=== PATIENT | female | born 1940 | race Caucasian/White ===

== ENCOUNTER → 2016-03-17 | Outpatient (CLI) | payer MEDICARE, BC ==
[~2016-03-17] MED LIST: DOCU-144 PO; ESCI10TA PO; HYDR-905 PO; LOSA50TA6 PO; PANT40TA4 PO; PITA2TAB PO; ULT50 PO
--- NOTE | 2016-03-17 11:54 | RADRPT ---
PROCEDURE: XR pelvis/right hip. CLINICAL INDICATION: Hip pain TECHNIQUE: AP pelvis/lateral right hip view available for review. COMPARISON: 02/18/2016 FINDINGS: There is a right total hip replacement. There is no evidence of loosening of the prosthesis. There is mild to moderate left hip osteoarthrosis. This is associated with joint space narrowing, jimenez bchondral sclerosis and osteophytosis. There is normal osseous mineralization. No fractures or osseo us lesions are identified. The soft tissues are unremarkable. IMPRESSION: Right total hip replacement. Mild to moderate left hip osteoarthrosis. RPTAT: HGDB .Emmanuel Lora MD, MD Date Time Electronically viewed and signed by .Emmanuel Lora MD, on 03/17/2016 11:54 .B/
== END | disposition home or self-care (01) ==
LOC: HKI 08:49
PROVIDERS: ATTEND Orthopaedic Surgery
DX: Z47.1 Aftercare following joint replacement surgery (principal); M16.11 Unilateral primary osteoarthritis, right hip; Z96.641 Presence of right artificial hip joint
CPT/HCPCS: 73502; G0463

== ENCOUNTER → 2016-05-15 | Outpatient (CLI) | payer MEDICARE, BC ==
[~2016-05-15] MED LIST changes: +TRAM50TA2 PO; -ULT50 PO
--- NOTE | 2016-05-15 17:07 | RADRPT ---
PROCEDURE: XR Right hip and pelvis. CLINICAL INDICATION: Right hip pain. Pelvic pain. Postop. TECHNIQUE: Three views. Frontal pelvis. Frontal and lateral right hip. COMPARISON: 03/17/2016. FINDINGS: There is no fracture or dislocation. The soft tissues are normal. There is a right hip total arthroplasty which appears satisfactory. There are moderate degenerative changes of the left hip with joint space narrowing and osteophytes. There is no lytic or blastic lesion. The sacroiliac joints are grossly normal. IMPRESSION: 1. Satisfactory postoperative appearance of the right hip. 2. Moderate degenerative changes of the left hip. RPTAT: QQ .Enrique Rutherford MD, MD Date Time Electronically viewed and signed by .Enrique Rutherford MD, MD on 05/15/2016 17:07 .R/
== END | disposition home or self-care (01) ==
LOC: HKI 08:45
PROVIDERS: ATTEND Orthopaedic Surgery
DX: M17.11 Unilateral primary osteoarthritis, right knee (principal); M25.561 Pain in right knee; Z96.641 Presence of right artificial hip joint
CPT/HCPCS: 73502; G0463

== ENCOUNTER → 2016-06-23 | Outpatient (CLI) | payer MEDICARE, BC ==
--- NOTE | 2016-06-23 10:22 | HKNOTE ---
DATE OF SERVICE: 06/23/2016 INTERVAL HISTORY: The patient presents today for a followup evaluation on her right knee. She has advanced osteoarthritis of the right knee and is here today for Monovisc injection. She had PRP don e which provided about a month of relief; however, she is having worsening pain with physical activi ty. She denies any fevers or chills. She has had a Synvisc injection in the past, but is here toda y for Monovisc. She presents today for evaluation and injection of her right knee. PHYSICAL EXAMINATION: Today, she is alert and oriented x4 and in no acute distress. She walks with a slight antalgic gait. She does have a varus alignment. The right knee range of motion is 0 to 1 20 degrees. She does have 2+ patellofemoral crepitus. Varus and valgus forces are stable. Compart ments are otherwise soft. She is neurovascularly intact distally. ASSESSMENT: Right knee osteoarthritis. PLAN: The patient underwent a Monovisc injection to her right knee successfully today. Post-inject ion instructions were provided. She is to ice it and take [id number] anti-inflammatories as n eeded. We will see her back on an as needed basis; however, can repeat her injection in 6 months if she would like to proceed. She demonstrates understanding and will call the office with any concer ns. PROCEDURE NOTE: The procedure was fully explained to the patient. Informed consent was obtained pr ior to the start procedure. The area was prepped and draped in a sterile fashion using Betadine. E thyl chloride was used to anesthetize the superolateral aspect of the right knee, and was injected w ith 4 mL of Monovisc successfully. A sterile dressing was applied. The patient tolerated the proce dure well. All questions and concerns were addressed at the time of procedure. Dictated By: MADAN VAZQUEZ/AAKASH Conf#: [id number] DID#: [id number]
== END | disposition home or self-care (01) ==
LOC: HKI 09:12
PROVIDERS: ATTEND Orthopaedic Surgery
DX: M25.561 Pain in right knee (principal); M17.11 Unilateral primary osteoarthritis, right knee
CPT/HCPCS: 20610; J7327

== ENCOUNTER → 2016-08-21 | Outpatient (CLI) | payer MEDICARE, BC ==
--- NOTE | 2016-08-21 15:28 | RADRPT ---
PROCEDURE: XR pelvis/right hip. CLINICAL INDICATION: Hip pain TECHNIQUE: AP pelvis/AP and lateral right hip views performed. COMPARISON: 05/15/2016 FINDINGS: There is a right total hip replacement. There is no evidence of loosening of the prosthesis. No hard coyne failure is identified. There is moderate left hip osteoarthrosis. This is associated with joint space narrowing, subchondra l sclerosis and osteophytosis. There is normal osseous mineralization. No fractures or osseous les ions are identified. The soft tissues are unremarkable. IMPRESSION: Right total hip replacement. Moderate left hip osteoarthrosis. RPTAT: HGDB .Emmanuel Lora MD, MD Date Time Electronically viewed and signed by .Emmanuel Lora MD, on 08/21/2016 15:27 .B/
== END | disposition home or self-care (01) ==
LOC: HKI 08:50
PROVIDERS: ATTEND Orthopaedic Surgery
DX: M25.561 Pain in right knee (principal); M54.5 Low back pain; M51.36 Other intervertebral disc degeneration, lumbar region; M54.16 Radiculopathy, lumbar region; M17.11 Unilateral primary osteoarthritis, right knee; Z96.641 Presence of right artificial hip joint
CPT/HCPCS: 73502; G0463

== ENCOUNTER → 2016-09-27 | Outpatient (CLI) | payer MEDICARE, BC ==
--- NOTE | 2016-09-27 15:48 | RADRPT ---
PROCEDURE: Left knee radiographs. CLINICAL INDICATION: Left knee pain. TECHNIQUE: Four views. Weight bearing. Frontal, lateral, oblique, and patellar view. COMPARISON: No prior studies are available for comparison. FINDINGS: There is no fracture or dislocation. There is no joint effusion. Vascular calcifications are present consistent with atherosclerosis. T here is diffuse osteopenia. There are degenerative changes with osteophytes arising from all 3 joint compartment margins. There is mild medial joint compartment narrowing. There is no lytic or blastic lesion. There is no radiopaque foreign body. IMPRESSION: 1. Atherosclerosis. 2. Diffuse osteopenia. 3. Mild to moderate degenerative changes of the left knee. RPTAT: QQ .Enrique Rutherford MD, MD Date Time Electronically viewed and signed by .Enrique Rutherford MD, MD on 09/27/2016 15:48 .R/
== END | disposition home or self-care (01) ==
LOC: HKI 10:12
PROVIDERS: ATTEND Orthopaedic Surgery
DX: M17.0 Bilateral primary osteoarthritis of knee (principal); Z96.641 Presence of right artificial hip joint; I10 Essential (primary) hypertension; E78.00 Pure hypercholesterolemia, unspecified
CPT/HCPCS: 20610; 73564; G0463; J7327